=== PATIENT | female | born 1965 | race Caucasian/White ===

== ENCOUNTER 2018-01-15 05:52 | Emergency (ER) | payer BC ==
[~2018-01-15] VITALS: Ht 154.9 cm; Wt 68.0 kg
[~2018-01-15 05:52] MED LIST: IBUPROFEN800 MG PO; PERCOCET 5-3251 EACH PO; PROZAC20 MG PO; TYLENOL325 MG PO
[2018-01-15] MEDS ORDERED: LISINOPRIL-HCT1 EAC2 PO (06:04)
[2018-01-15] MEDS ORDERED: ONDANSETRON ODT8 MG PO (07:55)
[2018-01-15] MEDS ORDERED: NORCO 10-325 T1 EACH PO (07:55)
== END 2018-01-15 08:05 | disposition home or self-care (01) ==
LOC: ED 05:52
DX: N20.0 Calculus of kidney (principal); I10 Essential (primary) hypertension; F17.200 Nicotine dependence, unspecified, uncomplicated; Z91.018 Allergy to other foods; Z88.5 Allergy status to narcotic agent; Z88.8 Allergy status to other drugs, medicaments and biological substances; Z79.899 Other long term (current) drug therapy
CPT/HCPCS: 74176; 80053; 81001; 85025; 96374; 96375; 99284; J1885; J2405; J7030

== ENCOUNTER 2018-10-28 02:35 | Emergency (ER) | payer BC ==
[~2018-10-28] VITALS: Ht 157.5 cm; Wt 72.6 kg
--- OUTSIDE RECORDS SUMMARY | ~2018-10-28 | XMS | Clinical Summary ---
Demographics + + + | Address | [address] | | | [place] [address] | + + + | Home Phone | | + + + | Preferred Language | Unknown | + + + | Marital Status | | + + + | Scientology Affiliation | Unknown | + + + | Race | Unknown | + + + | Ethnic Group | Unknown | + + + Author + + + | Author | [facility] | | | and [place] | + + + | Organization | [facility] | | | and [place] | + + + | Address | Unknown | + + + | Phone | Unavailable | + + + Support + + + + + | Name | Relationship | Address | Phone | + + + + + | Doron Cheney | ECON | Unknown | | + + + + + | Danny Cheney | ECON | [address] | | | | | [place], [place] | | | | | [address] | | + + + + + Care Team Providers + +------+ + | Care Caretaker Name | Role | Phone | + +------+ + | No Physician | PP | Unavailable | + +------+ + Allergies + + + + + + | Active Allergy | Reactions | Severity | Noted | Comments | | | | | Date | | + + + + + + | Diphenhydramine | Patient's Preference | | 11/05/19 | "cannot sleep- up | | | | | 16 | for days" | + + + + + + | Morphine | Nausea And Vomiting | Low | 11/08/19 | | | | | | 16 | | + + + + + + | Prochlorperazine | Anaphylaxis | High | 11/05/19 | AKA Compazine | | | | | 16 | | + + + + + + Medications + + + +---------+------+------+-------+ | Medication | Sig | Dispensed | Refills | Star | End | Statu | | | | | | t | Date | s | | | | | | Date | | | + + + +---------+------+------+-------+ | ibuprofen (ADVIL, | Take 400 mg by mouth | | 0 | | | Activ | | MOTRIN) 200 mg | every 6 hours as | | | | | e | | tablet | needed for Pain. | | | | | | + + + +---------+------+------+-------+ Active Problems + + + | Problem | Noted Date | + + + | Closed trimalleolar fracture of ankle, left, initial encounter | 11/10/2015 | + + + Family History + + +------+ + | Medical History | Relation | Name | Comments | + + +------+ + | Arthritis | Father | | | + + +------+ + | Depression | Father | | | + + +------+ + | High blood pressure | Father | | | + + +------+ + | Arthritis | Maternal | | | | | Grandfath | | | | | er | | | + + +------+ + | Depression | Maternal | | | | | Grandfath | | | | | er | | | + + +------+ + | Substance abuse | Maternal | | | | | Grandfath | | | | | er | | | + + +------+ + | Arthritis | Maternal | | | | | Grandmoth | | | | | er | | | + + +------+ + | Depression | Maternal | | | | | Grandmoth | | | | | er | | | + + +------+ + | Arthritis | Mother | | | + + +------+ + | Depression | Mother | | | + + +------+ + | Substance abuse | Mother | | | + + +------+ + | Arthritis | Paternal | | | | | Grandfath | | | | | er | | | + + +------+ + | Asthma | Paternal | | | | | Grandfath | | | | | er | | | + + +------+ + | Depression | Paternal | | | | | Grandfath | | | | | er | | | + + +------+ + | Diabetes | Paternal | | | | | Grandfath | | | | | er | | | + + +------+ + | Heart disease | Paternal | | | | | Grandfath | | | | | er | | | + + +------+ + | Arthritis | Paternal | | | | | Grandmoth | | | | | er | | | + + +------+ + | Cancer | Paternal | | | | | Grandmoth | | | | | er | | | + + +------+ + | Depression | Paternal | | | | | Grandmoth | | | | | er | | | + + +------+ + | Depression | Sister | | | + + +------+ + | Depression | Sister | | | + + +------+ + | Depression | Sister | | | + + +------+ + | Depression | Sister | | | + + +------+ + | Depression | Sister | | | + + +------+ + | Depression | Sister | | | + + +------+ + | Depression | Son | | | + + +------+ + | Depression | Son | | | + + +------+ + | Depression | Son | | | + + +------+ + | defects | Neg Hx | | | + + +------+ + | COPD | Neg Hx | | | + + +------+ + | Early | Neg Hx | | | + + +------+ + | Hearing loss | Neg Hx | | | + + +------+ + | High cholesterol | Neg Hx | | | + + +------+ + | Kidney disease | Neg Hx | | | + + +------+ + | Learning disability | Neg Hx | | | + + +------+ + | Mental illness | Neg Hx | | | + + +------+ + | Mental retardation | Neg Hx | | | + + +------+ + | Miscarriages / | Neg Hx | | | | stillbirths | | | | + + +------+ + | Premature CHD | Neg Hx | | | + + +------+ + | Stroke | Neg Hx | | | + + +------+ + | Vision loss | Neg Hx | | | + + +------+ + + +------+ + + | Relation | Name | Status | Comments | + +------+ + + | Father | | Alive | | + +------+ + + | Maternal Grandfather | | | | + +------+ + + | Maternal Grandmother | | | | + +------+ + + | Mother | | Alive | | + +------+ + + | Paternal Grandfather | | | | + +------+ + + | Paternal Grandmother | | | | + +------+ + + | Sister | | Alive | | + +------+ + + | Sister | | Alive | | + +------+ + + | Sister | | Alive | | + +------+ + + | Sister | | Alive | | + +------+ + + | Sister | | Alive | | + +------+ + + | Sister | | Alive | | + +------+ + + | Son | | Alive | | + +------+ + + | Son | | Alive | | + +------+ + + | Son | | Alive | | + +------+ + + Social History + + + +--------+ + | Tobacco Use | Types | Packs/Day | Years | Date | | | | | Used | | + + + +--------+ + | Former Smoker | Cigarettes | | 30 | Quit: 11/03/2015 | + + + +--------+ + + +---+---+---+ | Smokeless Tobacco: | | | | | Never Used | | | | + +---+---+---+ + + +---------+ + | Alcohol Use | Drinks/We | oz/Week | Comments | | | ek | | | + + +---------+ + | Yes | 1 | 0.6 | | | | Glasses | | | | | of wine | | | + + +---------+ + + + + | Sex Assigned at | Date Recorded | | | | + + + | Not on file | | + + + + + + + | Job Start Date | Occupation | Industry | + + + + | Not on file | Not on file | Not on file | + + + + + + + + | Travel History | Travel Start | Travel End | + + + + + + | No recent travel history available. | + + Last Filed Vital Signs + + + + | Vital Sign | Reading | Time Taken | + + + + | Blood Pressure | 120/60 | 01/26/2016 0809 PDT | + + + + | Pulse | 83 | 01/26/2016808 PDT | + + + + | Temperature | 36.2 C (97.1 F) | 03/13/2016 1305 PDT | + + + + | Respiratory Rate | 20 | 01/26/2016808 PDT | + + + + | Oxygen Saturation | 98% | 01/26/2016808 PDT | + + + + | Inhaled Oxygen | - | - | | Concentration | | | + + + + | Weight | 69.4 kg (153 lb) | 05/04/20161035 PDT | + + + + | Height | 157.5 cm (5' 2") | 05/04/20161035 PDT | + + + + | Body Mass Index | 27.98 | 05/04/20161035 PDT | + + + + Plan of Treatment + + + + + | Health Maintenance | Due Date | Last Done | Comments | + + + + + | Vaccine: | | | | | Dtap/Tdap/Td (1 - | 5 | | | | Tdap) | | | | + + + + + | Cervical Cancer | | | | | Screening (Pap) | 6 | | | + + + + + | Vaccine: Zoster (1 | | | | | of 2) | 6 | | | + + + + + | Vaccine: Influenza | | | | | (Season Ended) | 9 | | | + + + + + Implants + +------+--------+ +--------+--------+--------+ | Implanted | Type | Area | Manufacture | Device | Shelf | Model | | | | | r | | Expira | / | | | | | | Identi | tion | Serial | | | | | | fier | Date | / Lot | + +------+--------+ +--------+--------+--------+ | Screw Kajal Slf-Tp Ss 3.5x12mm | | Left: | JJHCS DEPUY | | | 212.10 | | - [id number]: Qty: 1 | | Ankle | SYNTHES - | | | 2 / / | | on 11/09/2015 by Ta, | | | SYNT | | | | | Gurmeet Coleman MD | | | | | | | + +------+--------+ +--------+--------+--------+ | Plate Tblr 07/04 Colr Lcp 7h - | | Left: | JJHCS DEPUY | | | 241.37 | | [id number]: Qty: 1 on | | Ankle | SYNTHES - | | | / / | | 11/09/2015 by Gurmeet Chappell | | | SYNT | | | | | MD [place] | | | | | | | + +------+--------+ +--------+--------+--------+ | Screw Kajal Slf-Tp Ss 3.5x14mm | | Left: | JJHCS DEPUY | | | 212.10 | | - [id number]: Qty: 1 | | Ankle | SYNTHES - | | | 3 / / | | on 11/09/2015 by Ta, | | | SYNT | | | | | Gurmeet Coleman MD | | | | | | | + +------+--------+ +--------+--------+--------+ | Screw Kajal Slf-Tp Ss 3.5x10mm | | Left: | LEONILAS DEPUY | | | 212.10 | | - [id number]: Qty: 1 | | Ankle | SYNTHES - | | | 1 / / | | on 11/09/2015 by Ta, | | | SYNT | | | | | Gurmeet Coleman MD | | | | | | | + +------+--------+ +--------+--------+--------+ | Screw Crtx Slf-Tp Ss 3.5x10mm | | Left: | JJHCS DEPUY | | | 204.81 | | - [id number]: Qty: 3 | | Ankle | SYNTHES - | | | 0 / / | | on 11/09/2015 by Ta, | | | SYNT | | | | | Gurmeet Coleman MD | | | | | | | + +------+--------+ +--------+--------+--------+ | 4.0 Cannlated Long | | Left: | Synthes | | | 207.74 | | ThreadImplanted: Qty: 2 on | | Ankle | | | | 0 / / | | 11/09/2015 by Gurmeet Chappell | | | | | | | | MD [place] | | | | | | | + +------+--------+ +--------+--------+--------+ + +------+--------+ +--------+--------+--------+ | Explanted | Type | Area | Manufacture | Device | Shelf | Model | | | | | r | | Expira | / | | | | | | Identi | tion | Serial | | | | | | fier | Date | / Lot | + +------+--------+ +--------+--------+--------+ | Screw Crtx Slf-Tp Ss 3.5x12mm | | Left: | [employer]HCS DEPUY | | | 204.81 | | - [id number]: Qty: | | Ankle | SYNTHES - | | | 2 / / | | 2Explanted: Qty: 2 on | | | SYNT | | | | | 11/09/2015 | | | | | | | + +------+--------+ +--------+--------+--------+ | Screw Crtx Slf-Tp Ss 3.5x14mm | | Left: | JJHCS DEPUY | | | 204.81 | | - [id number]: Qty: | | Ankle | SYNTHES - | | | 4 / / | | 1Explanted: Qty: 1 on | | | SYNT | | | | | 11/09/2015 | | | | | | | + +------+--------+ +--------+--------+--------+ | Screw Crtx Slf-Tp Ss 3.5x16mm | | Left: | JJHCS DEPUY | | | 204.81 | | - [id number]: Qty: | | Ankle | SYNTHES - | | | / / | | 1Explanted: Qty: 1 on | | | SYNT | | | | | 11/09/2015 | | | | | | | + +------+--------+ +--------+--------+--------+ Results Not on filefrom Last 3 Months Insurance + +--------+ +--------+-------+---------+------+ | Payer | Benefi | Subscriber | Effect | Phone | Address | Type | | | t Plan | ID | duong | | | | | | / | | Dates | | | | | | Group | | | | | | + +--------+ +--------+-------+---------+------+ | BLUE CROSS ID | BLUE | [id number] | 10/31/19 | | | PPO | | | CROSS | 3 | 15-Pre | | | | | | ID PPO | | sent | | | | + +--------+ +--------+-------+---------+------+ + +--------+ +--------+ + + | Guarantor Name | Accoun | Relation to | Date | Phone | Billing Address | | | t Type | Patient | of | | | | | | | | | | + +--------+ +--------+ + + | Lucy Dickerson | Person | Self [birth year] | [address] | | | al/Sunil | | 1966 | [phone] | [place] [address] | | | sakina | | | 6 (Home) | | + +--------+ +--------+ + + Advance Directives Patient has advance care planning documents, and code status on file. For more information, please contact:[facility] [place] [address] + + + + + | Code Status | Date | Date | Comments | | | Activated | Inactivated | | + + + + + | Full Code | 11/09/2015 | 11/09/2015 | | | | 17:20 | 20:57 | | + + + + +
--- OUTSIDE RECORDS SUMMARY | ~2018-10-28 | XMS | Clinical Summary ---
Demographics + + + | Address | [address] | | | [place] [address] | + + + | Home Phone | | + + + | Preferred Language | Unknown | + + + | Marital Status | | + + + | Tenriism Affiliation | Unknown | + + + | Race | Unknown | + + + | Ethnic Group | Unknown | + + + Author + + + | Author | [facility] | | | and [place] | + + + | Organization | [facility] | | | and [place] | [...] [place], [place] | | | | | [address] | | + + + + + Care Team Providers + +------+ + | Care Personal Finance Instructor Name | Role | Phone | + [...] | | | 212.10 | | - [id number]: Qty: 1 | | Ankle | SYNTHES - | | | 2 / / | | on 11/09/2015 by Ta, | | | SYNT | | | | | Gurmeet Coleman MD | | | | | | | + +------+--------+ +--------+--------+--------+ | Plate Tblr 07/04 Colr Lcp 7h - | | Left: | JJHCS DEPUY | | | 241.37 | | [id number]: Qty: 1 on | | Ankle | SYNTHES - | | | / / | | 11/09/2015 by Gurmeet Chappell | | | SYNT | | | | | MD [place] | | | | | | | + +------+--------+ +--------+--------+--------+ | Screw Kajal Slf-Tp Ss 3.5x14mm | | Left: | JJHCS DEPUY | | | 212.10 | | - [id number]: Qty: 1 | | Ankle | SYNTHES - | | | 3 / / | | on 11/09/2015 by Ta, | | | SYNT | | | | | Gurmeet Coleman MD | | | | | | | + +------+--------+ +--------+--------+--------+ | Screw Kajal Slf-Tp Ss 3.5x10mm | | Left: | LEONILAS DEPUY | | | 212.10 | | - [id number]: Qty: 1 | | Ankle | SYNTHES - | | | 1 / / | | on 11/09/2015 by Ta, | | | SYNT | | | | | Gurmeet Coleman MD | | | | | | | + +------+--------+ +--------+--------+--------+ | Screw Crtx Slf-Tp Ss 3.5x10mm | | Left: | JJHCS DEPUY | | | 204.81 | | - [id number]: Qty: 3 | | Ankle | SYNTHES [...] | | | 204.81 | | - [id number]: Qty: | | Ankle | SYNTHES - | | | 2 / / | | 2Explanted: Qty: 2 on | | | SYNT | | | | | 11/09/2015 | | | | | | | + +------+--------+ +--------+--------+--------+ | Screw Crtx Slf-Tp Ss 3.5x14mm | | Left: | JJHCS DEPUY | | | 204.81 | | - [id number]: Qty: | | Ankle | SYNTHES - | | | 4 / / | | 1Explanted: Qty: 1 on | | | SYNT | | | | | 11/09/2015 | | | | | | | + +------+--------+ +--------+--------+--------+ | Screw Crtx Slf-Tp Ss 3.5x16mm | | Left: | JJHCS DEPUY | | | 204.81 | | - [id number]: Qty: | | Ankle | SYNTHES - [...] | BLUE CROSS ID | BLUE | [id number] | 10/31/19 | | | PPO | [...] | | al/Sunil | | 1966 | [phone] | [place] [address] | | | sakina | | | 6 (Home) | | + +--------+ +--------+ + + Advance Directives Patient has advance care planning documents, and code status on file. For more information, please contact:[facility] [place] [address] + + + + + | Code Status | Date | Date | Comments | | | Activated | Inactivated | | + + + + + | Full Code | 11/09/2015 | 11/09/2015 | | | | 17:20 | 20:57 | | + + + + +
[~2018-10-28 02:35] MED LIST changes: +LISINOPRIL-HCT1 EAC2 PO; +NORCO 10-325 T1 EACH PO; +ONDANSETRON ODT8 MG PO
[2018-10-28] MEDS ORDERED: NORCO 5-325 TA1 EACH PO (03:15)
== END 2018-10-28 03:37 | disposition home or self-care (01) ==
LOC: ED 02:35
DX: S83.91XA Sprain of unspecified site of right knee, initial encounter (principal); X50.9XXA Other and unspecified overexertion or strenuous movements or postures, initial encounter; I10 Essential (primary) hypertension; F17.200 Nicotine dependence, unspecified, uncomplicated; Z88.8 Allergy status to other drugs, medicaments and biological substances; Z88.5 Allergy status to narcotic agent; Z79.899 Other long term (current) drug therapy
CPT/HCPCS: 73560; 99283-25

== ENCOUNTER 2022-07-29 12:32 | Emergency (ER) | payer OTHER ==
[~2022-07-29] VITALS: Ht 157.5 cm; Wt 81.7 kg
[~2022-07-29 12:32] MED LIST changes: +NORCO 5-325 TA1 EACH PO
[2022-07-29] MEDS ORDERED: HYDROCODON-ACE1 EA11 PO (14:33)
== END 2022-07-29 14:51 | disposition home or self-care (01) ==
LOC: ED 12:32
DX: S82.142A Displaced bicondylar fracture of left tibia, initial encounter for closed fracture (principal); I10 Essential (primary) hypertension; F17.200 Nicotine dependence, unspecified, uncomplicated; Z91.018 Allergy to other foods; Z88.5 Allergy status to narcotic agent; Z88.8 Allergy status to other drugs, medicaments and biological substances; X50.1XXA Overexertion from prolonged static or awkward postures, initial encounter
CPT/HCPCS: 73560; 73700; 96374; 99284-25; J1170

== ENCOUNTER 2022-08-07 09:10 | Day surgery (SDC) | payer OTHER ==
[~2022-08-07] VITALS: Ht 157.5 cm; Wt 81.8 kg
--- NOTE | ~2022-08-07 | OR ---
[facility] [address], [place] [address] [place] DATE OF OPERATION: 08/07/2022 SURGEON: Michael Maldonado MD PREOPERATIVE DIAGNOSIS: Left tibial plateau fracture. POSTOPERATIVE DIAGNOSIS: Left tibial plateau fracture. PROCEDURE PERFORMED: Open reduction and internal fixation of left tibial plateau. WOUND SPECIALIST: Rubi Piña PA-C. Rubi was present and critical for all portions of procedure. TOURNIQUET TIME: 59 minutes. BLOOD LOSS: Minimal. IMPLANTS: Gina small tibial plateau plate with injectable bone graft. BRIEF HISTORY: Facundo is a 56-year-old female who suffered a fall on wet kitchen floor. She fractured her tibial plateau and presented to the clinic. Risks and benefits of operative treatment were discussed with her and she elected to proceed. DESCRIPTION OF PROCEDURE: Once consent was obtained, she was taken to the operating room. After adequate anesthesia, she was placed on the operating room table on a hip bump. The leg was prepped and draped in the standard sterile fashion up to a well-padded proximal thigh tourniquet. The leg was exsanguinated using Esmarch bandage. Tourniquet inflated to 250 mmHg. Standard curvilinear incision was made overlying the lateral proximal tibia. This was carried through the skin and subcutaneous tissue. The muscle fascia was incised longitudinally. This was carried up through the lateral capsule. A small wound was made underneath the lateral meniscus and the blood was evacuated from the knee joint PATIENT NAME: FACUNDO SMALLWOOD OPERATIVE REPORT DATE OF : 65 REPORT #: [id number] PHYSICIAN: MICHAEL MALDONADO MD PCP: NO PRIMARY CARE PHYSICIAN REPORT IS CONFIDENTIAL AND NOT TO BE RELEASED WITHOUT AUTHORIZATION [facility] [address] [place], [place] [address] Draft itself. This allowed good visualization of the depressed split fracture and the anterior split in the cortex. This was opened up and the tibial plateau surface was elevated from underneath using a bone tamp. Once it was elevated sufficiently and slightly over reduced, the K-wire was placed in the subchondral bone across. The lateral flap was then folded back underneath this. The plate was then fixed, was then fashioned to the lateral aspect of the plateau and a K-wire was placed through it. The 1st screw was then placed in the midportion of the lateral tibial plateau. A 3.5 locking screw was used for this. Two more screws were placed in the plateau and one in the shaft. Once this was accomplished, the image intensifier was brought in and excellent reduction was obtained. The screw lengths were appropriate. Two more screws were placed, one in the shaft, one in the subcondylar region. Once this was accomplished, the insertion needle for the Gina injectable bone graft was placed into the defect. This was then filled with approximately 2.5 mL of the bone graft. This was allowed to harden for 10 minutes and the needle was removed. The wound was copiously irrigated with antibiotic solution, closed with #1 Vicryl for the fascia. We did repair the meniscus and the lateral capsule back to the plate utilizing #2 FiberWire. The subcutaneous tissue was closed using 0 Stratafix and the skin with marta. The wound was dressed with an Acticoat-7 dressing and Allen wrap. She was placed back into her hinged knee brace. She tolerated the procedure well. All sponge, needle, and instrument counts were correct. Michael Maldonado MD BA/RAHUL /[id number] Copies: ~ PATIENT NAME: FACUNDO SMALLWOOD OPERATIVE REPORT DATE OF : 65 REPORT #: [id number] PHYSICIAN: MICHAEL MALDONADO MD PCP: NO PRIMARY CARE PHYSICIAN REPORT IS CONFIDENTIAL AND NOT TO BE RELEASED WITHOUT AUTHORIZATION
[~2022-08-07 09:10] MED LIST changes: +HYDROCODON-ACE1 EA11 PO
[2022-08-07] MEDS ORDERED: OXYCODONE HCL5 MG PO ×2 (09:35→12:31)
[2022-08-07] MEDS ORDERED: NEURONTIN300 MG PO (09:36)
[2022-08-07] MEDS ORDERED: SENNA8.6 MG PO (09:36)
[2022-08-07] MEDS ORDERED: TYLENOL EXTRA500 MG PO (09:37)
[2022-08-07] MEDS ORDERED: ADULT LOW DOSE81 MG PO (09:38)
[2022-08-07] MEDS ORDERED: MINERAL OIL473 ML PO (09:40)
== END 2022-08-07 14:22 | disposition home or self-care (01) ==
LOC: DS 09:10 → MS 14:00 → EDSTATUS 14:00 → DS 14:00
PROVIDERS: ATTEND Specialist
PROC: 0QSH04Z Reposition Left Tibia with Internal Fixation Device, Open Approach (ICD-10-PCS; principal; 2022-08-07 12:20)
DX: S82.142A Displaced bicondylar fracture of left tibia, initial encounter for closed fracture (principal); W19.XXXA Unspecified fall, initial encounter; G89.18 Other acute postprocedural pain; Z87.891 Personal history of nicotine dependence
CPT/HCPCS: 73560; J0690; J1100; J1885; J2001; J2250; J2405; J2704; J2765; J2795; J3010; J7121